=== PATIENT | male | born 1950 | race Caucasian/White ===

== ENCOUNTER → 2017-10-11 08:05 | Outpatient (CLI) | payer BC, MEDICARE, SELFPAY ==
[2017-10-11 08:32] LABS: Add Manual Diff / Slide Review NO; Basophils Percent Auto 0.3 % (0-2); Hematocrit 42.2 % (41-53); Hemoglobin 14.5 g/dL (13.5-17.5); Mean Corpuscular HGB Conc 34.3 % (30-36); Mean Corpuscular Hemoglobin 32.4 PG (26-34); Mean Corpuscular Volume 94.4 fL (80-100); Monocytes Percent Auto 4.8 % (3-14); Neutrophils Absolute Auto 4400 /uL (3000-5900); Neutrophils Percent Auto 35.9 % (50-75); Platelet Count 149 X10^3/uL (150-400); Red Blood Cell Count 4.46 X10^6/uL (4.5-5.9); Red Cell Distribution Width 13.4 % (11.6-14.8); White Blood Cell Count 12.4 X10^3/uL (4.5-11.0)
[2017-10-11 08:47] LABS: Alanine Aminotransferase 27 IU/L (21-72); Albumin 3.9 g/dL (3.5-5.0); Albumin Globulin Ratio 1.8 (1.0-2.8); Alkaline Phosphatase 73 U/L (38-126); Aspartate Aminotransferase 20 IU/L (17-59); BUN Creatinine Ratio 16.7 (6-22); Bilirubin Total 0.9 mg/dL (0.2-1.3); Blood Urea Nitrogen 20 mg/dL (9-20); Calcium 9.2 mg/dL (8.4-10.2); Carbon Dioxide 26 mmol/L (22-32); Chloride 103 mmol/L (98-107); Estimated Glomerular Filt Rate > 60.0 mL/min (>60); Globulin 2.2 g/dL (1.7-4.1); Glucose 99 mg/dL (80-110); HEMOLYSIS < 15 (0-50); Potassium 4.4 mmol/L (3.4-5.1); Sodium 140 mmol/L (137-145); Total Protein 6.1 g/dL (6.3-8.2)
== END ==
PROVIDERS: Family Provider Specialist; PCP Specialist; Visit Provider Internal Medicine Hematology & Oncology
DX: C91.10 Chronic lymphocytic leukemia of B-cell type not having achieved remission (principal)
CPT/HCPCS: 36415; 80053; 85025

== ENCOUNTER → 2018-10-17 09:58 | Outpatient (CLI) | payer BC, MEDICARE, SELFPAY | PROVIDERS: Family Provider Specialist; PCP Specialist; Visit Provider Internal Medicine Hematology & Oncology | DX: C91.90 Lymphoid leukemia, unspecified not having achieved remission (principal) | CPT/HCPCS: 93005 ==

== ENCOUNTER → 2019-03-26 08:18 | Outpatient (CLI) | payer BC, MEDICARE, SELFPAY ==
[2019-03-26 09:10] LABS: Add Manual Diff / Slide Review NO; Basophils Absolute Auto 0 /uL (0-100); Basophils Percent Auto 0.4 % (0-2); Eosinophils Absolute Auto 200 /uL (0-450); Eosinophils Percent Auto 2.3 % (2-4); Hematocrit 42.6 % (41-53); Hemoglobin 14.7 g/dL (13.5-17.5); Lymphocytes Absolute Auto 4100 /uL (1100-4500); Lymphocytes Percent Auto 41.2 % (25-40); Mean Corpuscular HGB Conc 34.5 % (30-36); Mean Corpuscular Hemoglobin 33.3 PG (26-34); Mean Corpuscular Volume 96.5 fL (80-100); Monocytes Absolute Auto 500 /uL (0-900); Monocytes Percent Auto 5.1 % (3-14); Neutrophils Absolute Auto 5000 /uL (1500-7000); Platelet Count 154 X10^3/uL (150-400); Red Blood Cell Count 4.41 X10^6/uL (4.5-5.9); Red Cell Distribution Width 13.8 % (11.6-14.8); White Blood Cell Count 9.9 X10^3/uL (4.5-11.0)
[2019-03-26 09:26] LABS: Alanine Aminotransferase 15 IU/L (<50); Albumin 4.1 g/dL (3.5-5.0); Alkaline Phosphatase 64 U/L (38-126); Aspartate Aminotransferase 22 IU/L (17-59); BUN Creatinine Ratio 17.1 (6-22); Bilirubin Total 1.1 mg/dL (0.2-1.3); Blood Urea Nitrogen 24 mg/dL (9-20); Calcium 9.6 mg/dL (8.4-10.2); Carbon Dioxide 32 mmol/L (22-32); Chloride 100 mmol/L (98-107); Estimated Glomerular Filt Rate 50.2 mL/min (>60); Globulin 2.1 g/dL (1.7-4.1); Glucose 118 mg/dL (80-110); HEMOLYSIS < 15 (0-50); Lactate Dehydrogenase 496 U/L (313-618); Potassium 4.5 mmol/L (3.4-5.1); Sodium 139 mmol/L (137-145); Total Protein 6.2 g/dL (6.3-8.2)
== END ==
PROVIDERS: Family Provider Specialist; PCP Specialist; Visit Provider Internal Medicine Hematology & Oncology
DX: C91.90 Lymphoid leukemia, unspecified not having achieved remission (principal)
CPT/HCPCS: 36415; 80053; 83615; 85025

== ENCOUNTER → 2020-10-09 09:40 | Outpatient (CLI) | payer MEDICARE, BC, SELFPAY ==
--- NOTE | 2020-10-09 | DI.RAD.S_ITS ---
PROCEDURE: FL BARIUM ENEMA W AIR CONTRAST INDICATIONS: Encounter for screening for malignant neoplasm of COMPARISON: None. FINDINGS: Despite utilizing large amounts of barium and multiple prolonged attempts at patient positioning, secondary to tortuosity of the colon, there is incomplete filling and the right colon was not able to be contrast opacified. KUB: Pre-procedural brim raiser film demonstrates a normal bowel gas pattern. No suspicious abdominal calcifications. Visualized solid organ contours are normal in size. No suspicious bony lesions. Colon: There is suboptimal contrast opacification of the right colon, which is incompletely opacified secondary to redundant tortuous anatomy. Where visualized, no definite strictures, ulcers, polyps, or masses are seen. Haustral folds are normal in thickness throughout. No diverticula. IMPRESSION: Suboptimal evaluation secondary to markedly tortuous colon. Where contrast opacified, unremarkable examination. There is noncontrast opacification of the proximal right colon. Dictated by: Cr Cannon M.D. on 10/09/2020 at 14:22 Approved by: Cr Cannon M.D. on 10/09/2020 at 14:31
== END ==
PROVIDERS: Family Provider Specialist; PCP Specialist; Referring Provider Specialist; Visit Provider Specialist
DX: Z12.11 Encounter for screening for malignant neoplasm of colon (principal)
CPT/HCPCS: 74280

== ENCOUNTER → 2020-10-15 10:13 | Outpatient (CLI) | payer MEDICARE, BC, SELFPAY | PROVIDERS: Family Provider Specialist; PCP Specialist; Referring Provider Specialist; Visit Provider Specialist | DX: N40.2 Nodular prostate without lower urinary tract symptoms (principal) | CPT/HCPCS: 74176 ==

== ENCOUNTER → 2020-10-15 11:41 | Outpatient (CLI) | payer MEDICARE, BC, SELFPAY ==
[2020-10-15 12:51] LABS: COVID19 -Nasal RAPID Negative (Negative)
== END ==
PROVIDERS: Family Provider Specialist; PCP Specialist; Visit Provider Specialist
DX: Z20.822 Contact with and (suspected) exposure to COVID-19 (principal)
CPT/HCPCS: 87635

== ENCOUNTER 2020-10-17 07:24 | Day surgery (SDC) | payer MEDICARE, BC, SELFPAY ==
[2020-10-10 14:23] VITALS: BMI 34.2
[2020-10-17 08:05] VITALS: BP 135/80; PULSE 56; RESP 12; TEMP 36.2; O2SAT 100; BMI 32.1
[2020-10-17] MEDS: LACTATED RINGERS 1,000 ML 42 ML IV (08:23)
[2020-10-17] MEDS: ACETAMINOPHEN 325 MG TABLET 975 MG PO (08:23)
--- NOTE | 2020-10-17 09:05 | PM.PREOP ---
Pre-operative Note Interval Note History & Physical reviewed/Exam performed by Physician: Yes Changes to H&P: No
[2020-10-17] MEDS: CEFAZOLIN 1 GM VIAL 2 GM IV (09:45)
--- NOTE | 2020-10-17 10:00 | DI.RAD.S_ITS ---
PROCEDURE: FL PYELOGRAM RETROGRADE COMPARISON: None. INDICATIONS: RT/LT RETROPYLOGRAM FINDINGS: 2 fluoroscopic images utilized during performance of a retrograde pyelogram. IMPRESSION: Operative fluoroscopic imaging utilized during retrograde pyelogram. Please refer to physician report for findings. No hydronephrosis is identified on the images provided. Dictated by: Checo Mora M.D. on 10/17/2020 at 17:11 Approved by: Checo Mora M.D. on 10/17/2020 at 17:12
--- NOTE | 2020-10-17 10:05 | SUR.OPER ---
Lithotomy on padded OR bed, head on pillow, arms secured on padded arm boards at <90 degrees abduction. Legs secured in padded yellow fins stirrups.
[2020-10-17 10:14] VITALS: BP 140/79; PULSE 51; RESP 10; TEMP 36.9; O2SAT 99
[2020-10-17] MEDS: IOPAMIDOL 15 ML VIAL INJ (10:17)
[2020-10-17 10:20] VITALS: BP 132/78; PULSE 52; RESP 17; O2SAT 95
--- NOTE | 2020-10-17 10:20 | P.OP_ITS ---
Operative Date/Time/Diagnoses Date of procedure: 10/17/20 Time of procedure: 10:20 Pre-op diagnosis: 1. Microscopic hematuria 2. CKD Post-op diagnosis: same Procedure & Clinicians Procedure: 1. Cystoscopy and bilateral retrograde pyelogram Same procedure as scheduled: Yes Indications: 1. Microscopic hematuria 2. CKD Surgeon: Suzanna Cox Click Yes if Unassisted: Yes Anesthesia Type: General Operative Notes Findings: 1. Urethra-normal caliber without annular stricture or lesion. 2. External sphincter-somewhat lax with normal overlying urothelium. 3. Prostate-5+ cm length with trilobar hyperplasia and inflammatory changes of the mucosa. There are also numerous benign inflammatory mucosal polyps. The prostatic urethra was hypervascular. 4. Bladder-1+ trabeculation. Normal ureteral orifices bilaterally with clear efflux visualized. No evidence of stone, tumor, or foreign body. 5. Left collecting system-delicate calices and normal caliber ureter. No evidence of obstruction or filling defect. 6. Right collecting system-delicate calices and normal caliber ureter. No evidence of obstruction or filling defect. Closure Type: not applicable Specimen(s): none sent Estimated Blood Loss (mL): 2 Blood products transfused: none Procedure in detail: The patient was positioned supine and was administered general anesthesia. He was then repositioned semi lithotomy and the lower abdomen, groin, and genitalia were then prepped and draped in sterile fashion. The 22 Yoruba panendoscope was then passed in lower urinary tract with the findings as described above. Next using a 5 Yoruba whistle-tip catheter bilateral retrograde pyelograms were performed with the findings as described above. The bladder was then drained completely and all instrumentation was removed. Complications: none Post-operative Condition: stable Disposition: PACU Plan for aftercare: 1. Discharge home 2. Rx finasteride 5 mg p.o. q.day. 3. Return visit to [facility] 6 months with PSA and PVR.
[2020-10-17 10:25] VITALS: BP 125/73; PULSE 57; RESP 14; TEMP 36.4; O2SAT 98
--- NOTE | 2020-10-17 10:31 | SUR.PHASEI ---
Patient awake, denies pain/nausea, tolerating fluids. C/O need to void. Denies dizziness or light-headedness.
[2020-10-17 11:01] VITALS: BP 128/82; PULSE 55; RESP 15; TEMP 35.7; O2SAT 99
[2020-10-17 11:37] LABS: Prostate Specific Antigen 4.74 ng/mL (0.10-4.00)
== END 2020-10-17 11:12 | disposition home or self-care (01) ==
PROVIDERS: Family Provider Specialist; PCP Specialist; Referring Provider Specialist; Visit Provider Specialist
PROC: (CPT 52005; principal; 2020-10-17 09:15)
DX: R31.9 Hematuria, unspecified (principal); N18.9 Chronic kidney disease, unspecified; N40.0 Benign prostatic hyperplasia without lower urinary tract symptoms
CPT/HCPCS: 52005; 74420; 76000; 84153; J0690; J1100; J2405; J2704

== ENCOUNTER → 2021-04-08 09:51 | Outpatient (CLI) | payer MEDICARE, BC, SELFPAY ==
[2021-04-08 12:16] LABS: Prostate Specific Antigen 1.76 ng/mL (0.10-4.00)
== END ==
PROVIDERS: Family Provider Specialist; PCP Specialist; Referring Provider Specialist; Visit Provider Specialist
DX: N40.2 Nodular prostate without lower urinary tract symptoms (principal); R97.20 Elevated prostate specific antigen [PSA]
CPT/HCPCS: 36415; 84153